=== PATIENT | male | born 1985 | race Caucasian/White ===

== ENCOUNTER 2017-12-05 13:35 | Inpatient (IN) | payer OTHER ==
[~2017-12-05] VITALS: Ht 185.4 cm; Wt 58.1 kg
--- NOTE | 2017-12-05 13:45 | NUR ---
Intake Assessment; Patient is AOX4, presented to [facility] to detoxify from OxyContin, Subutex and Phenobarbital. Patient appears very anxious , complaining of muscle aches and nausea. Patient's admitting vital signs are as follows; BP 114/70, HR 93, respirations 18, Spo2 95% on room air, complains of generalized body aches. Patient denies any allergies or denies history of seizures. Patient denies any past medical history. Educated patient regarding unit protocols and policies, verbalized understanding. Will continue with further assessment when patient is in the unit.
[2017-12-05] MEDS ORDERED: METHOCARBAMOL 750 MG TABLET PO PRN (15:00)
[2017-12-05] MEDS ORDERED: DICYCLOMINE HCL 20 MG TABLET PO PRN (15:00)
[2017-12-05] MEDS ORDERED: MIRALAX 17 GM POWD.PACK PO PRN (15:00)
[2017-12-05] MEDS ORDERED: LORAZEPAM 1 MG TABLET PO PRN (15:00)
[2017-12-05] MEDS ORDERED: IBUPROFEN 600 MG TABLET PO PRN (15:00)
[2017-12-05] MEDS ORDERED: diphenhydrAMINE 50 MG CAPSULE PO PRN (15:00)
[2017-12-05] MEDS ORDERED: LOPERAMIDE HCL 2 MG CAPSULE PO PRN ×2 (15:00)
[2017-12-05] MEDS ORDERED: BUPRENORPHINE HCL 2 MG TAB.SUBL SL PRN (15:00)
[2017-12-05] MEDS ORDERED: MAGNESIUM HYDROXIDE 30 ML LIQUID UDC PO PRN (15:00)
[2017-12-05] MEDS ORDERED: ONDANSETRON ODT 4 MG TAB.RAPDIS SL PRN (15:00)
[2017-12-05] MEDS ORDERED: CLONIDINE HCL 0.1 MG TABLET PO PRN (15:00)
[2017-12-05] MEDS ORDERED: HYDROXYZINE PAMOATE 25 MG CAPSULE PO PRN (15:00)
[2017-12-05] MEDS ORDERED: ONDANSETRON 4 MG/2 ML VIAL IM PRN (15:00)
[2017-12-05] MEDS ORDERED: ACETAMINOPHEN 325 MG TABLET PO PRN (15:00)
[2017-12-05] MEDS ORDERED: MAG HYDROX/AL HYDROX/SIMETH 30 ML LIQUID UDC PO PRN (15:00)
[2017-12-05 15:01] LABS: *AMPHETAMINE, URINE NEGATIVE (NEGATIVE); *BARBITURATE, URINE POSITIVE (NEGATIVE); *CANNABINOID, URINE NEGATIVE (NEGATIVE); *COCCAINE, URINE NEGATIVE (NEGATIVE); *OPIATE, URINE NEGATIVE (NEGATIVE); *PHENCYCLIDINE SCREEN,URINE NEGATIVE (NEGATIVE)
[2017-12-05] MEDS: BUPRENORPHINE HCL 2 MG TAB.SUBL SL SCH ×2 (15:18→21:27)
[2017-12-05 16:00] VITALS: BP 132/88
--- NOTE | 2017-12-05 16:37 | NUR ---
Admission note; Patient is AOX4, presented to [facility] to detoxify from OxyContin, Subutex and Phenobarbital. Patient appears very anxious and agitated, complaining of muscle aches and nausea. Patient's admitting vital signs are as follows; BP 114/70, HR 93, respirations 18, Spo2 95% on room air, complains of generalized body aches. Patient denies any allergies or denies history of seizures. Discussed substance use history. Patient reported that he has been using OxyContin for 2 years now with a total of 120mg /daily, last used was on 11/19/17 prior to getting admitted to [facility]. Patient reported that he was recently at [facility] and was placed on Subutex and Phenobarbital medication for a week. Patient unable to recall the doses for Subutex and Phenobarbital. Patient denies any past medical history although he appears to have symptoms of eating disorder. Educated patient regarding unit protocols and policies, verbalized understanding. Patient's current COWS score is 12. Patient was seen and evaluated by MD at intake. Oriented patient to unit by ASSISTANT PROFESSOR OF PHILOSOPHY. Skin check done with no significant findings. All safety measures secured. Will continue to monitor patient.
--- NOTE | 2017-12-05 18:38 | NUR ---
End of shift; Patient is AOX4. Patient remained compliant with treatment plan and medication regime. Medications noted to be effective in reducing withdrawal symptoms. Patient was placed on a 3 day Modified Subutex taper. All safety measures secured. Met all needs.
--- NOTE | 2017-12-05 19:30 | NUR ---
Start of Shift Notes: Report received from day shift nurse. Pt is 32M, admitted for Opioid Withdrawals on 12/05/17. Pt was in group activity upon start of shift. Upon assessment, pt is AOx4 without s/s of acute distress noted. Pt is full code, on regular diet, and on fall precautions. Pt noted with NKA. Pt denies any primary medical history. Pt is currently on 3-day Subutex taper to manage withdrawal symptoms. Per day shift nurse, last COWS was 8 at 1600. Bed in lowest position. Side rails up x2. Call light functioning and within reach. All needs attended and met. Will continue to monitor.
[2017-12-05 20:00] VITALS: BP 119/65
[2017-12-05 21:24] LABS: BASOPHILS % (AUTO) 0.3 % (0.0-2.0); EOSINOPHILS % (AUTO) 0.1 % (0.0-7.0); HEMATOCRIT 40.4 % (36.7-47.1); HEMOGLOBIN 13.8 g/dL (12.5-16.3); LYMPHOCYTES # (AUTO) 2.8 K/uL (20.0-40.0); LYMPHOCYTES % (AUTO) 19.3 % (20.5-51.5); MEAN CORPUSCULAR HEMOGLOBIN 32.6 uug (23.8-33.4); MEAN CORPUSCULAR HGB CONC 34 g/dL (32.5-36.3); MEAN CORPUSCULAR VOLUME 95.4 fL (73.0-96.2); MONOCYTES # (AUTO) 0.9 K/uL (2.0-10.0); MONOCYTES % (AUTO) 6.4 % (0.0-11.0); NEUTROPHILS # (AUTO) 10.7 K/uL (1.8-8.9); NEUTROPHILS % (AUTO) 73.9 % (38.5-71.5); PLATELET COUNT (AUTO) 339 K/uL (152-348); RED BLOOD CELL COUNT(AUTO) 4.24 MIL/uL (4.06-5.63); WHITE BLOOD COUNT (AUTO) 14.5 K/uL (3.6-10.2)
[2017-12-05] MEDS: GABAPENTIN 300 MG CAPSULE PO SCH (21:27)
--- NOTE | 2017-12-05 21:27 | NUR ---
Benadryl PRN: Pt requested medication for sleep. Benadryl PRN given as ordered.
[2017-12-05 21:28] LABS: ALANINE AMINOTRANSFERASE 35 U/L (16-63); ALKALINE PHOSPHATASE 48 U/L (50-136); ASPARTATE AMINOTRANSFERASE 11 U/L (15-37); BILIRUBIN,TOTAL 0.4 mg/dL (0.2-1.0); CARBON DIOXIDE 30 mmol/L (21-32); CHLORIDE 102 mmol/L (98-107); CREATININE 1.6 mg/dL (0.6-1.3); GLUCOSE 152 mg/dL (74-106); MAGNESIUM 2.1 mg/dL (1.8-2.4); POTASSIUM 2.9 mmol/L (3.5-5.1); TOTAL PROTEIN, SERUM 7.9 g/dL (6.4-8.2); UREA NITROGEN, BLOOD 20 mg/dL (7-18)
[2017-12-05 21:39] LABS: ETHANOL < 3 MG/DL (0-0)
[2017-12-05] MEDS ORDERED: POTASSIUM CHLORIDE 20 MEQ TAB.PRT.SR PO ONE (22:15)
--- NOTE | 2017-12-05 22:30 | NUR ---
Lab Value, MD Communication, and IV refusal: Pt noted with Potassium 2.9 of and Creatinine of 1.6. MD made aware with new order for 40meq K-Dur and 1,000ml of IV NS @ 150ml/hr. Orders noted and carried out. Pt refused IV NS at this time but would like to receive it in the morning. Explained risks to pt of not receiving IV fluids. Pt encouraged to drink PO fluids. Will continue to monitor.
[2017-12-06] VITALS: BP 135/71
[2017-12-06 04:00] VITALS: BP 100/63
--- NOTE | 2017-12-06 07:01 | NUR ---
End of Shift Notes: Pt is 32M, admitted for Opioid Withdrawals on 12/05/17. Pt is full code, on regular diet, and on fall precautions. Pt noted with NKA. Pt denies any primary medical history. Pt slept for 7 hours. Pt is currently on 3-day Subutex taper to manage withdrawal symptoms. Last COWS was 3 at 0400. Pt received PRN Benadryl for sleep. Fall precautions observed. Bed in lowest position. Side rails up x2. Call light functioning and within reach. All needs attended and met. Will endorse to day shift nurse.
--- NOTE | 2017-12-06 07:49 | NUR ---
START OF SHIFT RECEIVED PT LAYING IN BED, A/O X4, RESPIRATIONS EVEN AND UNLABORED. PT REPORTS HAVING GENERALIZED BODY ACHES, ANXIETY. PT IS ON A 3 DAY SUBUTEX TAPER. ENCOURAGED PT TO INCREASE FLUIDS TO PROMOTE HYDRATION. SIDE RAILS X2, BED IS IN LOWEST POSITION. CALL LIGHT WITHIN REACH. ALL SAFETY MEASURES IN PLACE. WILL CONTINUE TO MONITOR.
[2017-12-06 08:00] VITALS: BP 126/73
[2017-12-06] MEDS: GABAPENTIN 300 MG CAPSULE PO SCH ×2 (08:31→20:54)
[2017-12-06 08:47] LABS: BASOPHILS # (AUTO) 0.1 K/uL (0.0-8.0); BASOPHILS % (AUTO) 0.6 % (0.0-2.0); EOSINOPHILS # (AUTO) 0.1 K/uL (0.0-0.7); EOSINOPHILS % (AUTO) 1.1 % (0.0-7.0); HEMATOCRIT 39.2 % (36.7-47.1); HEMOGLOBIN 13.5 g/dL (12.5-16.3); LYMPHOCYTES # (AUTO) 4.2 K/uL (20.0-40.0); LYMPHOCYTES % (AUTO) 38.7 % (20.5-51.5); MEAN CORPUSCULAR HEMOGLOBIN 32.9 uug (23.8-33.4); MEAN CORPUSCULAR HGB CONC 34 g/dL (32.5-36.3); MEAN CORPUSCULAR VOLUME 95.8 fL (73.0-96.2); MONOCYTES # (AUTO) 0.6 K/uL (2.0-10.0); MONOCYTES % (AUTO) 5.5 % (0.0-11.0); NEUTROPHILS # (AUTO) 5.8 K/uL (1.8-8.9); NEUTROPHILS % (AUTO) 54.1 % (38.5-71.5); PLATELET COUNT (AUTO) 298 K/uL (152-348); RED BLOOD CELL COUNT(AUTO) 4.09 MIL/uL (4.06-5.63)
[2017-12-06 08:50] LABS: CREATININE 1.5 mg/dL (0.6-1.3); MAGNESIUM 1.6 mg/dL (1.8-2.4); PHOSPHOROUS 3.3 mg/dL (2.5-4.9); POTASSIUM 4.2 mmol/L (3.5-5.1)
[2017-12-06 08:59] LABS: WHITE BLOOD COUNT (AUTO) 10.8 K/uL (3.6-10.2)
[2017-12-06] MEDS ORDERED: TUBERCULIN,PURIF.PROT.DERIV. 5 TU/0.1 ML TEST ID ONE (09:00)
[2017-12-06] MEDS: BUPRENORPHINE HCL 2 MG TAB.SUBL SL SCH ×3 (09:03→20:54)
[2017-12-06] MEDS: IV NS 1000 ML 1,000 ML IV PRN ×2 (09:04→20:53)
--- NOTE | 2017-12-06 09:05 | NUR ---
IV INSERTION PERIPHERAL IV PLACED ON R AC 22G, FLUSHED, PATENT, DRESSING DRY AND INTACT. NS 150 ML/HR. WILL CONTINUE TO MONITOR.
--- NOTE | 2017-12-06 09:23 | NUR ---
PRN PT C/O HEADACHE 05/30 AND MOTRIN 600 MG PO PRN WAS GIVEN. WILL CONTINUE TO MONITOR.
--- NOTE | 2017-12-06 10:23 | NUR ---
REASSESSMENT PT REPORTED MED EFFECTIVE FOR HIS HEADACHE. WILL CONTINUE TO MONITOR.
[2017-12-06 12:00] VITALS: BP 97/65
[2017-12-06] MEDS ORDERED: MAGNESIUM OXIDE 400 MG TABLET PO ONE (12:15)
[2017-12-06 16:00] VITALS: BP 106/63
--- NOTE | 2017-12-06 19:26 | NUR ---
END OF SHIFT PT IS A 32 Y/O M ADMITTED FOR MEDICALLY SUPERVISED OPIATE W/D. PT IS A/O X4, RESPIRATIONS EVEN AND UNLABORED. DENIES CHEST PAIN, SOB, NAUSEA. PT IS ON A 3 DAY SUBUTEX TAPER. LAST COWS 3. IV ON R AC 22G, RUNNING NS 150 ML/HR. ENCOURAGED PT TO INCREASE FLUIDS TO PROMOTE HYDRATION. SIDE RAILS X2, BED IS IN LOWEST POSITION. CALL LIGHT WITHIN REACH. ALL SAFETY MEASURES IN PLACE. WILL GIVE ALL PERTINENT INFO AND ENDORSEMENT TO TABLE MACHINE OPERATOR NURSE.
[2017-12-06 20:00] VITALS: BP 105/57
--- NOTE | 2017-12-06 20:00 | NUR ---
Start of Shift Patient is admitted for Opiates Dependence. Pt is placed on a Subutex taper, last dose on 12/07 AM. No adverse reactions observed. Pt is AAOx4 and with mild anxiety noted. With IV access on the right AC #22, patent and intact. Saline flush done, no resistance noted. No SOB, not in respi distress. Pt is ambulatory with steady gait and with no skin issues noted. Fall, universal and safety prec in place. Call light within reach. Latest COWS=4. Will continue to monitor.
[2017-12-06] MEDS: QUETIAPINE FUMARATE 100 MG TABLET PO SCH (20:54)
[2017-12-07] VITALS: BP 112/69
[2017-12-07 04:00] VITALS: BP 116/70
--- NOTE | 2017-12-07 07:05 | NUR ---
End of Shift Patient is admitted for Opiates Dependence. Pt is placed on a Subutex taper, last dose on 12/07 AM. No adverse reactions observed. Pt is AAOx4 and with mild anxiety noted. With IV access on the right AC #22, patent and intact. Saline flush done, no resistance noted. With IVF as ordered, infusing well. No SOB, not in respi distress. Pt is ambulatory with steady gait and with no skin issues noted. Fall, universal and safety prec in place. Call light within reach. Latest COWS=4, slept for 8 hours. Endorsed to AM shift for continuity of care.
[2017-12-07 07:41] LABS: BASOPHILS # (AUTO) 0.1 K/uL (0.0-8.0); BASOPHILS % (AUTO) 0.9 % (0.0-2.0); EOSINOPHILS # (AUTO) 0.2 K/uL (0.0-0.7); EOSINOPHILS % (AUTO) 2.3 % (0.0-7.0); HEMATOCRIT 36.4 % (36.7-47.1); HEMOGLOBIN 12.5 g/dL (12.5-16.3); LYMPHOCYTES # (AUTO) 3.7 K/uL (20.0-40.0); LYMPHOCYTES % (AUTO) 47.1 % (20.5-51.5); MEAN CORPUSCULAR HEMOGLOBIN 32.9 uug (23.8-33.4); MEAN CORPUSCULAR HGB CONC 35 g/dL (32.5-36.3); MEAN CORPUSCULAR VOLUME 95.6 fL (73.0-96.2); MONOCYTES # (AUTO) 0.6 K/uL (2.0-10.0); MONOCYTES % (AUTO) 7.6 % (0.0-11.0); NEUTROPHILS # (AUTO) 3.3 K/uL (1.8-8.9); NEUTROPHILS % (AUTO) 42.1 % (38.5-71.5); PLATELET COUNT (AUTO) 257 K/uL (152-348); WHITE BLOOD COUNT (AUTO) 7.9 K/uL (3.6-10.2)
--- NOTE | 2017-12-07 07:53 | NUR ---
START OF SHIFT RECEIVED PT LAYING IN BED, A/O X4, RESPIRATIONS EVEN AND UNLABORED. PT DENIES SOB, NAUSEA, CHEST PAIN. IV ON R AC 22G, RUNNING 150 ML/HR NS. PT IS ON A 3 DAY SUBUTEX TAPER. ENCOURAGED PT TO INCREASE FLUIDS TO PROMOTE HYDRATION. SIDE RAILS X2, BED IS IN LOWEST POSITION. CALL LIGHT WITHIN REACH. ALL SAFETY MEASURES IN PLACE. WILL CONTINUE TO MONITOR.
[2017-12-07 08:00] VITALS: BP 116/65
[2017-12-07 08:01] LABS: CREATININE 1.2 mg/dL (0.6-1.3); MAGNESIUM 1.8 mg/dL (1.8-2.4); POTASSIUM 4.2 mmol/L (3.5-5.1)
[2017-12-07 08:06] LABS: HEPATITIS B SURFACE AG Negative (Negative)
[2017-12-07] MEDS: GABAPENTIN 300 MG CAPSULE PO SCH ×3 (08:35→20:41)
[2017-12-07] MEDS ORDERED: BUPRENORPHINE HCL 2 MG TAB.SUBL SL SCH (09:00)
[2017-12-07 12:00] VITALS: BP 118/67
[2017-12-07] MEDS ORDERED: IBUP-1955 PO (14:45)
[2017-12-07] MEDS ORDERED: QUET100T PO (14:45)
[2017-12-07] MEDS ORDERED: HYDR-3895 PO (14:45)
[2017-12-07] MEDS ORDERED: DICY20TA28 PO (14:45)
[2017-12-07] MEDS ORDERED: GABA-534 PO (14:45)
[2017-12-07] MEDS ORDERED: METH-406 PO (14:45)
[2017-12-07 16:00] VITALS: BP 109/63
--- NOTE | 2017-12-07 16:37 | NUR ---
Patient is 32 y/o male who present to [facility] for medically supervised withdrawal from opioids, Patient will d/c today per MD notes Tolerating current diet, eating 75-100% of meals Anthropometry;current weight is 128lb,BMI 16.9,physical assessment report suggest mild/moderate fat and muscle loss to orbital/triceps and clavicle area I/Os: not available bowel sound present wnl skin intact,Jimenez score 21 Nutrition diagnosis: underweight related to substance use,inadequate energy/kcal intake prior to admission as evidenced by BMI 16.9,muscle/fat atrophy Nutrition intervention: Rec dietary supplement,HS Monitor; oral intake,weight,new labs Addendum: 12/07/17 at [address] Amended: Links added.
--- NOTE | 2017-12-07 19:26 | NUR ---
END OF SHIFT PT IS A/O X4, RESPIRATIONS EVEN AND UNLABORED. PT DENIES SOB, NAUSEA, CHEST PAIN. LAST COWS 2. PT IS TO BE DISCHARGED TOMORROW. PT COMPLETED A 3 DAY SUBUTEX TAPER TODAY. LAST ENCOURAGED PT TO INCREASE FLUIDS TO PROMOTE HYDRATION. SIDE RAILS X2, BED IS IN LOWEST POSITION. CALL LIGHT WITHIN REACH. ALL SAFETY MEASURES IN PLACE. WILL GIVE ALL ENDORSEMENT AND PERTINENT INFO TO OXYGEN FURNACE OPERATOR NURSE.
[2017-12-07 20:00] VITALS: BP 114/70
--- NOTE | 2017-12-07 20:00 | NUR ---
Start of Shift Patient is admitted for Opiates Dependence. Pt is placed on a Subutex taper, last dose on 12/07 AM. No adverse reactions observed. Pt is AAOx4 and with mild anxiety noted. With IV access on the right AC #22, patent and intact. Saline flush done, no resistance noted. No SOB, not in respi distress. Pt is ambulatory with steady gait and with no skin issues noted. Pt was seen by the dietitian today, encouraged pt to finish 100% of meals served. Fall, universal and safety prec in place. Call light within reach. Patient for discharge tomorrow, pending location. Latest COWS=3. Will continue to monitor. Addendum: 12/08/17 at 0648 by ISABELLE DIANE RN Correction: NO IV ACCESS. IV ACCESS REMOVED DURING DAYSHIFT.
[2017-12-07] MEDS: QUETIAPINE FUMARATE 100 MG TABLET PO SCH (20:41)
[2017-12-08] VITALS: BP 112/69
[2017-12-08 04:00] VITALS: BP 109/65
--- NOTE | 2017-12-08 07:17 | NUR ---
End of Shift Patient is admitted for Opiates Dependence. Pt is placed on a Subutex taper, last dose on 12/07 AM. No adverse reactions observed. Pt is AAOx4 and with mild anxiety noted., patent and intact. Saline flush done, no resistance noted. No SOB, not in respi distress. Pt is ambulatory with steady gait and with no skin issues noted. Pt was seen by the dietitian today, encouraged pt to finish 100% of meals served. Fall, universal and safety prec in place. Call light within reach. Patient for discharge tomorrow, pending location. Latest COWS=2, slept for 7 hours. Endorsed to AM shift nurse for continuity of care.
--- NOTE | 2017-12-08 07:30 | NUR ---
START OF SHIFT Pt 32 y/o male admitted for opiate withdrawal. Pt received in room on bed with eyes closed resting, but easily arousable to name. Pt alert and oriented to name, place, and time. Perrla. Skin warm and dry to touch. Respirations even and unlabored. It was reported that pt slept for 7 hours last night. Bed on lowest position with side rails x2 up for safety. Call light within reach. No distress noted at this time. Pt is scheduled to be discharged today.
[2017-12-08] MEDS: GABAPENTIN 300 MG CAPSULE PO SCH (08:23)
[2017-12-08 08:26] VITALS: BP 133/62
[2017-12-08 12:15] VITALS: BP 103/65
--- NOTE | 2017-12-08 13:15 | NUR ---
DISCHARGE Pt 32 y/o male admitted for opiate withdrawal. Pt alert and oriented to name, place, and time. Perrla. Skin warm and dry to touch. Respirations even and unlabored. No hand tremors noted. VS wnl. No home medications noted. No belongings in the cassette or cabinet noted. All discharge papers and prescriptions packed in pt bag. Pt denies any SI. Pt discharged to [facility] via private transport. No distress noted. Addendum: 12/08/17 at 1447 by ISABELLE DOWNEY RN correction Pt discharged to home. All belongings with pt.
== END 2017-12-08 14:45 | disposition home or self-care (01) | DRG 897 ==
LOC: SRC 14:04
PROVIDERS: ADMIT Internal Medicine; ATTEND Internal Medicine
PROC: HZ2ZZZZ Detoxification Services for Substance Abuse Treatment (ICD-10-PCS; principal; 2017-12-05)
DX: F11.23 Opioid dependence with withdrawal (principal); N17.9 Acute kidney failure, unspecified; F17.210 Nicotine dependence, cigarettes, uncomplicated; E87.6 Hypokalemia; E83.42 Hypomagnesemia; R73.9 Hyperglycemia, unspecified; D72.823 Leukemoid reaction; E86.9 Volume depletion, unspecified
CPT/HCPCS: 36415; 80307; 80345; 83735; 84100; 85025; 86580; 86592; 86705; 86803; 87340; 87806; G0480; J7030; Q0163